=== PATIENT | male | born 1995 | race African-American/Black ===

== ENCOUNTER 2017-11-16 21:54 | Emergency (ER) | payer SELFPAY ==
[2017-11-16 23:01] LABS: ABS Basophils 0 10^3/ul (0-0.2); ABS Eosinophils 0.2 10^3/ul (0-0.6); ABS Lymphocytes 3.7 10^3/ul (1.0-4.8); ABS Monocytes 0.8 10^3/ul (0-0.8); ABS Neutrophils 3.9 10^3/ul (1.5-7.7); ABS Nucleated RBC 0 10^3/ul; Eosinophil % 2.5 % (0-6); Hematocrit 47 % (42-52); Hemoglobin 15.3 g/dl (14.0-18.0); Mean Corpuscular HGB Conc 33 g/dl (31-36); Mean Corpuscular Hemoglobin 25 pg (27-31); Mean Corpuscular Volume 78 fL (80-94); Mean Platelet Volume 8.2 um3 (7.4-10.4); Nucleated Red Blood Cells % 0.1; Platelet Count 363 10^3/ul (150-450); Red Blood Count 6.06 10^6/ul (4.00-5.40); Red Cell Distribution Width 15 % (10.5-15); White Blood Count 8.6 10^3/ul (3.5-10.8)
--- NOTE | 2017-11-16 23:01 | ED ---
Psychiatric Complaint - HPI Summary HPI Summary: This is meg Esteban documenting for attending Dr. Seferino Siegel MD. A 22 y/o male presents to ED c/o SI. As per triage, "pt in with c/o S.I tonight. Pt states increasing depression. pt is medicated with antidepression medications. Pt doesn't have a current therapist. Pt states SI x 1 wk". According to the patient, he had an emotional breakdown tonight based around SI. He thinks it is because of the prescribed medications he takes. Currently on Zoloft 50 mg daily for the past year. He noted that he actually took the Zoloft because of his previous medication, Celexa, for anxiety going to college and his issues adjusting. He noted that the Celexa treated well but within 5 months he felt feeling of depression and hopelessness. He had issues building relationships even with his parents and was down all the time. He noted that August or September of last year he felt sucidial feelings for the first time. Currently still take Zoloft. - History Of Current Complaint Chief Complaint: EDMentalHealth Time Seen by Provider: 11/16/17 22:25 Hx Obtained From: Patient Onset/Duration: Lasting Days, Still Present, Worse Since Timing: Constant Character: Depressed Aggravating Factor(s): Nothing, Other - Possibly prescribed medication. Alleviating Factor(s): Nothing Associated Signs And Symptoms: Positive: Social Withdrawal Related History: Positive For: Prior Psychiatric Issues Has Suicidal: Reports: Thoughts Has Homicidal: Denies: Thoughts PMH/Surg Hx/FS Hx/Imm Hx Endocrine/Hematology History: Denies: Hx Diabetes Cardiovascular History: Denies: Hx Hypertension Psychiatric History: Reports: Hx Anxiety, Hx Depression Infectious Disease History: No Infectious Disease History: Denies: Traveled Outside the [place] in Last 30 Days - Family History Known Family History: Positive: Other - Depression, breast cancer - Social History Lives: With Family Alcohol Use: Occasionally - Wine Substance Use Type: Reports: Marijuana - Previous marijuana smoker. Hx Tobacco Use: No Smoking Status (MU): Never Smoked Tobacco Review of Systems Negative: Fever Psychological: Other - SI Positive: Depressed All Other Systems Reviewed And Are Negative: Yes Physical Exam - Summary Physical Exam Summary: VITAL SIGNS: Reviewed. GENERAL: Patient is a well-developed and nourished male who is lying comfortable in the stretcher. Patient is not in any acute respiratory distress. Normal exam. HEAD AND FACE: No signs of trauma. No ecchymosis, hematomas or skull depressions. No sinus tenderness. EYES: PERRLA, EOMI x 2, No injected conjunctiva, no nystagmus. EARS: Hearing grossly intact. Ear canals and tympanic membranes are within normal limits. MOUTH: Oropharynx within normal limits. NECK: Supple, trachea is midline, no adenopathy, no JVD, no carotid bruit, no c- spine tenderness, neck with full ROM. CHEST: Symmetric, no tenderness at palpation LUNGS: Clear to auscultation bilaterally. No wheezing or crackles. CVS: Regular rate and rhythm, S1 and S2 present, no murmurs or gallops appreciated. ABDOMEN: Soft, non-tender. No signs of distention. No rebound no guarding, and no masses palpated. Bowel sounds are normal. EXTREMITIES: FROM in all major joints, no edema, no cyanosis or clubbing. NEURO: Alert and oriented x 3. No acute neurological deficits. Speech is normal and follows commands. SKIN: Dry and warm Triage Information Reviewed: Yes Vital Signs On Initial Exam: Initial Vitals Temp Pulse Resp BP Pulse Ox 99.1 F 86 18 141/85 97 11/16/17 22:01 11/16/17 22:01 11/16/17 22:01 11/16/17 22:01 11/16/17 22:01 Vital Signs Reviewed: Yes Diagnostics - Vital Signs Vital Signs Temp Pulse Resp BP Pulse Ox 11/16/17 22:01 99.1 F 86 18 141/85 97 - Laboratory Result Diagrams: 11/16/17 22:39 11/16/17 22:39 Lab Statement: Any lab studies that have been ordered have been reviewed, and results considered in the medical decision making process. Course/Dx - Course Course Of Treatment: A 22 y/o male presents to ED c/o SI. According to the patient, he had an emotional breakdown tonight based around SI. He thinks it is because of the prescribed medications he takes. Currently on Zoloft 50 mg daily for the past year. No laboratory scans were done. In the ED course, the patient recieved no medications. Following [facility], patient care was discussed with Dr. Cat who recommends discharge. Patient is to be discharged with a diagnosis of depression. Pt is agreeable with this plan. - Differential Dx/Clinical Impression Provider Diagnosis: Depression - Physician Notifications Discussed Care Of Patient With: Jakob Cat Time Discussed With Above Provider: 03:09 Instructed by Provider To: Other - Recommends discharge. Discharge - Sign-Out/Discharge Documenting (check all that apply): Patient Departure - DISCHARGE - Discharge Plan Condition: Stable Disposition: HOME Patient Education Materials: Depression (ED) Referrals: No Primary Care Phys,NOPCP [Primary Care Provider] - [facility] [Outside] Additional Instructions: FOLLOW UP WITH [facility]. RETURN TO ED FOR ANY NEW OR WORSENING SYMPTOMS.
[2017-11-16 23:05] LABS: EGFR Non-African American 115.3 (>60)
[2017-11-17 03:36] VITALS: BP 122/74
== END 2017-11-17 03:50 | disposition home or self-care (01) ==
LOC: EDBD → ED 21:54
DX: F32.9 Major depressive disorder, single episode, unspecified (principal); Z79.899 Other long term (current) drug therapy
CPT/HCPCS: 36415; 80053; 80320; 80329; 84443; 85025; 99284; G0480